=== PATIENT | female | born 1950 | race Caucasian/White ===

== ENCOUNTER 2018-07-22 17:13 | Inpatient (IN) ==
--- NOTE | 2018-07-22 17:52 | ED ---
HPI General Chief complaint: Respiratory Symptoms Stated complaint: tremors Time Seen by Provider: 07/22/18 17:50 Source: patient and family Mode of arrival: wheelchair Limitations: altered mental status History of Present Illness HPI narrative: 66-year-old female patient with history of dementia, multiple medical issues, presents to the ER today brought in by her because apparently she has a home health care nurse and they told him to bring her in. She has poor baseline, demented, has history of anemia, but is appearing more weak than usual. She appears in respiratory distress on initial evaluation. Related Data Allergies Allergy/AdvReac Type Severity Reaction Status Date / Time meperidine Allergy Mild U Unverified 06/22/17 16:31 ADHESIVE Allergy Intermediate CONTACT Uncoded 07/01/15 09:10 POINT ON SKIN REDDENED; SKIN RAW Review of Systems ROS Unobtainable ROS Unobtainable: unobtainable due to mental status PMFSH Medical History Medical History Anemia (Acute) Anxiety (Acute) Breast cancer (Acute) Dementia (Acute) Social History Social History Substance History: No History of Abuse Second Hand Smoke Exposure: No Smoking Status: Former smoker How Often Do You Have a Drink Containing Alcohol: Never Recent Travel in [facility] within the Last 8 Weeks: No Recent Out of Country Travel within the Last 8 Weeks: No Immunization History Tetanus Immunization: <5 Years Hx Influenza Vaccine This Season: Yes Exam Narrative Exam Narrative: GENERAL: Well-developed elderly white female patient currently and moderate respiratory distress. Awake, lethargic. Disoriented. SKIN: Focused skin assessment warm/dry. HEAD: Atraumatic. Normocephalic. EYES: Pupils equal and round. No scleral icterus. No injection or drainage. ENT: No nasal bleeding or discharge. Mucous membranes pink and moist. NECK: Trachea midline. No JVD. CARDIOVASCULAR: Regular rate and rhythm. No murmur appreciated. RESPIRATORY: Moderate accessory muscle use. Bilateral coarse breath sounds and crackles. Breath sounds equal bilaterally. GASTROINTESTINAL: Abdomen soft, non-tender, nondistended. Hepatic and splenic margins not palpable. MUSCULOSKELETAL: No obvious deformities. No clubbing. No cyanosis. No edema. NEUROLOGICAL: Awake and alert. No obvious cranial nerve deficits. Motor grossly within normal limits. Normal speech. PSYCHIATRIC: Lethargic; insight and judgment poor. Course Initial Documented Vital Signs Temperature 98.2 F 07/22/18 17:25 Respiratory Rate 18 07/22/18 17:25 Blood Pressure 75/36 L 07/22/18 17:25 Pulse Oximetry 80 L 07/22/18 17:25 Last Documented Vital Signs Temperature 98.2 F 07/22/18 17:25 Pulse Rate 70 07/22/18 17:43 Respiratory Rate 13 07/22/18 17:43 Blood Pressure 96/53 L 07/22/18 17:43 Pulse Oximetry 100 07/22/18 18:53 Medical Decision Making MDM Narrative Medical decision making narrative: Patient has history of dementia, is answering some questions, but has been apparently is her decision-maker, confirms that he wants her to be a DNR. On initial evaluation, she has bilateral coarse pulmonary crackles, chest x-ray confirms bilateral pulmonary infiltrates, questionable bilateral pneumonia versus CHF. Her blood pressure is fairly low in the ER, IV fluids were given. IV antibiotics are ordered after cultures are drawn, and the patient is put on BiPAP. She will need to be admitted to the ICU for further treatment. At this point, patient will need ICU care, case is discussed with Dr. Wen for admission to the ICU. Aggregate critical care time was 30 minutes. Time to perform other separately billable procedures was not included in the critical care time. My time did not include minutes spent treating any other patients simultaneously or on activities that did not directly contribute to the patient's treatment. The services I provided to this patient were to treat and/or prevent clinically significant deterioration that could result in: Respiratory failure, septic shock, cardiac arrest, I provided critical care services requiring my management, as noted below: Chart data review, documentation time, medication orders and management, vital sign assessments/reviewing monitor data, ordering and reviewing lab tests, ordering and interpreting/reviewing x-rays and diagnostic studies, care of the patient and discussion of the patient with the admitting physicians. Medical Screen Exam Complete: Yes Emergency Medical Condition: Yes Differential Diagnosis Differential Diagnosis: CHF exacerbation versus pneumonia versus COPD versus sepsis Lab Data Lab results reviewed: Yes I reviewed the patient's lab results. Result diagrams: 07/22/18 18:05 07/22/18 18:05 Lab Results 07/22/18 Range/Units 18:05 WBC 13.4 H (4.0-11.0) th/mm3 RBC 2.02 L (4.00-5.30) mil/mm3 Hgb 7.7 L (11.6-15.3) gm/dL Hct 23.3 L (35.0-46.0) % MCV 115.4 H (80.0-100.0) fL MCH 38.0 H (27.0-34.0) pg MCHC 32.9 (32.0-36.0) % RDW 21.1 H (11.6-17.2) % Plt Count 192 (150-450) th/mm3 MPV 9.3 (7.0-11.0) fL Neut % (Auto) 87.3 H (16.0-70.0) % Lymph % (Auto) 8.9 L (9.0-44.0) % [place] % (Auto) 3.6 (0.0-8.0) % Eos % (Auto) 0.1 (0.0-4.0) % Baso % (Auto) 0.1 (0.0-2.0) % Neut # (Auto) 11.7 H (1.8-7.7) th/mm3 Lymph # (Auto) 1.2 (1.0-4.8) th/mm3 [place] # (Auto) 0.5 (0.0-0.9) th/mm3 Eos # (Auto) 0.0 (0.0-0.4) th/mm3 Baso # (Auto) 0.0 (0.0-0.2) th/mm3 WBC Differential . Differential Comment Auto diff final Imaging Data Attestation: I personally reviewed and interpreted this imaging study as follows : Radiologist's impression: Chest X-Ray 07/22/18 17:52 CONCLUSION: Left greater than right parenchymal consolidation as described. Discharge Plan Discharge Disposition Patient Disposition: 30 Still Patient Discharge Condition Condition: Critical Discharge Details Anticipated Discharge Date: 07/22/18 Diagnosis: Pulmonary edema, Hypoxia, Severe sepsis Physicians Team ED Provider: Joey Mari Primary Care Provider: Dashawn Landeros Discharge Interventions Interventions: Vital Signs Last Done: 07/22/18 17:43 Status ED Status: Admitted Patient
--- NOTE | 2018-07-22 18:17 | XR ---
EXAM DATE: 07/22/2018 6:13 PM EDT AGE/SEX: 67 years / Female INDICATIONS: Short of breath. CLINICAL DATA: This is the patient's initial encounter. Patient reports that signs and symptoms have been present for 1 day and indicates a pain score of 0/10. MEDICAL/SURGICAL HISTORY: None. . ORIF right proximal humerus. COMPARISON: . FINDINGS: There is bilateral airspace disease, patchy and diffuse on the right and dense on the left in the mid and lower lung zones. No definite pleural effusion. No pneumothorax. Heart size upper limits of normal. CONCLUSION: Left greater than right parenchymal consolidation as described. Electronically signed by: Dashawn Huynh MD 07/22/2018 6:16 PM EDT
[2018-07-22] MEDS ORDERED: Azithromycin Inj 500 MG in Sodium Chlor 0.9% Inj 250 ML IV.SIG ONE (18:27)
[2018-07-22 19:00] LABS: Baso % (Auto) 0.1 % (0.0-2.0); Eos % (Auto) 0.1 % (0.0-4.0); Hematocrit 23.3 % (35.0-46.0); Hemoglobin 7.7 gm/dL (11.6-15.3); Lymph # (Auto) 1.2 th/mm3 (1.0-4.8); Lymph % (Auto) 8.9 % (9.0-44.0); Mean Corpuscular HGB Conc 32.9 % (32.0-36.0); Mean Corpuscular Volume 115.4 fL (80.0-100.0); Mean Platelet Volume 9.3 fL (7.0-11.0); Mono # (Auto) 0.5 th/mm3 (0.0-0.9); Mono % (Auto) 3.6 % (0.0-8.0); Neut # (Auto) 11.7 th/mm3 (1.8-7.7); Neut % (Auto) 87.3 % (16.0-70.0); Platelet Count 192 th/mm3 (150-450); Red Blood Count 2.02 mil/mm3 (4.00-5.30); Red Cell Distribution Width 21.1 % (11.6-17.2); White Blood Count 13.4 th/mm3 (4.0-11.0)
[2018-07-22] MEDS ORDERED: Temazepam 15 MG Capsule PO PRN (19:02)
[2018-07-22] MEDS ORDERED: Acetaminophen 325 MG Tablet PO PRN (19:02)
[2018-07-22] MEDS ORDERED: Bisacodyl 10 MG Supp RECTAL PRN (19:02)
--- NOTE | 2018-07-22 19:08 | P.HPCC ---
History of Present Illness Primary Care Physician: Dashawn Landeros MD History of Present Illness: 67-year-old female patient with history of advanced dementia, presents because she has had a home health care nurse visit and they told him to bring her in. She has poor baseline, has history of anemia, but is appearing more weak today than usual. In the emergency department she was found to be hypotensive with systolic blood pressure in 70s, and also hypoxemic respiratory failure responded well to BiPAP. No additional history is available due to patient's altered mental status. Review of Systems unobtainable due to mental condition PMFSH - History History Provided By: Family Member - Medical History Medical History: Medical History (Last Reviewed 07/22/18 @ 17:51 by Joey Mari MD) Anemia Anxiety Breast cancer Dementia - Tobacco History Second Hand Smoke Exposure: No Smoking Status: Former smoker - Alcohol History How Often Do You Have a Drink Containing Alcohol: Never - Substance Use History Substance History: No History of Abuse - Travel History Recent Travel in the [place] Within the Last 8 Weeks: No Recent Travel Out of the Country Within the Last 8 Weeks: No - Immunization History Tetanus Immunization: <5 Years Hx Influenza Vaccine This Season: Yes Medications and Allergies Active Medications: Active Medications Acetaminophen (Tylenol) 650 mg PO Q6H PRN PRN Reason: PAIN 1-10 AND/OR FEVER >101F Albuterol (Duoneb Neb (Prn)) 1 ampul NEB Q2HR NEB PRN PRN Reason: WHEEZING Bisacodyl (Dulcolax Supp) 10 mg RECTAL DAILY PRN PRN Reason: SEVERE CONSITIPATION Chlorhexidine Gluconate (Chlorhexidine 2% Cloth) 3 pack TOPICAL DAILY@0400 [facility] Stop: 07/28/18 03:59 Azithromycin 500 mg/ Sodium (Chloride) 250 mls @ 250 mls/hr IV.SIG ONCE ONE Stop: 07/22/18 19:26 Allergies Allergy/AdvReac Type Severity Reaction Status Date / Time meperidine Allergy Mild U Unverified 06/22/17 16:31 ADHESIVE Allergy Intermediate CONTACT Uncoded 07/01/15 09:10 POINT ON SKIN REDDENED; SKIN RAW Results - Labs CBC & Chem 7: 07/22/18 18:05 07/22/18 19:25 Labs: Short CBC 07/22/18 Range/Units 18:05 WBC 13.4 H (4.0-11.0) th/mm3 Hgb 7.7 L (11.6-15.3) gm/dL Hct 23.3 L (35.0-46.0) % Plt Count 192 (150-450) th/mm3 - Imaging Impressions Chest X-Ray 07/22/18 17:52 CONCLUSION: Left greater than right parenchymal consolidation as described. Exam Vital signs: Vital Signs 07/22/18 17:25 07/22/18 17:43 07/22/18 17:52 Temperature 98.2 F Pulse Rate 70 Respiratory Rate 18 13 Blood Pressure 75/36 L 96/53 L Pulse Oximetry 80 L 100 100 07/22/18 18:53 Temperature Pulse Rate Respiratory Rate Blood Pressure Pulse Oximetry 100 Intake & Output 07/22/18 07/22/18 07/23/18 06:59 18:59 06:59 Weight 60.781 kg - Constitutional moderate distress - Routine HEENT Exam Head: Present: normocephalic, atraumatic Eye: Present: PERRL ENT: Present: mucous membranes moist - Routine Neck Exam Present: supple, full ROM. Absent: JVD, carotid bruit - Routine Respiratory Exam Present: accessory muscle use, rhonchi, crackles. Absent: stridor, wheezes - Routine Cardiovascular Exam Present: RRR, S1, S2 - Routine Abdominal Exam Present: soft, normoactive bowel sounds. Absent: tenderness, distended - Routine Extremities Exam Absent: cyanosis, clubbing, edema - Routine Skin Exam Present: intact. Absent: cyanosis, erythema - Routine Neurological Exam Present: moving all extremities Septic Shock Reassessment Septic shock perfusion: reassessment completed Caprini VTE Risk Assessment Caprini VTE Risk Assessment: Moderate/High Risk (score >= 2) Caprini Risk Assessment Model: Point Value = 1 Point Value = 2 Point Value = 3 Point Value = 5 Age 41-60 Minor surgery BMI > 25 kg/m2 Swollen legs Varicose veins or History of unexplained or recurrent spontaneous Oral contraceptives or hormone replacement Sepsis (< 1 month) Serious lung disease, including pneumonia (< 1 month) Abnormal pulmonary function Acute myocardial infarction Congestive heart failure (< 1 month) History of inflammatory bowel disease Medical patient at bed rest Age 61-74 Arthroscopic surgery Major open surgery (> 45 min) Laparoscopic surgery (> 45 min) Malignancy Confined to bed (> 72 hours) Immobilizing plaster cast Central venous access Age >= 75 History of VTE Family history of VTE Factor V Leiden Prothrombin [id number] Lupus anticoagulant Anticardiolipin antibodies Elevated serum homocysteine Heparin-induced thrombocytopenia Other congenital or acquired thrombophilia Stroke (< 1 month) Elective arthroplasty Hip, pelvis, or leg fracture Acute spinal cord injury (< 1 month) Prophylaxis Regimen: Total Risk Factor Score Risk Level Prophylaxis Regimen 0-1 Low Early ambulation 2 Moderate Order ONE of the following: *Sequential Compression Device (SCD) *Heparin 5000 units SQ BID 3-4 Higher Order ONE of the following medications: *Heparin 5000 units SQ TID *Enoxaparin/Lovenox 40 mg SQ daily (WT < 150 kg, CrCl > 30 mL/min) *Enoxaparin/Lovenox 30 mg SQ daily (WT < 150 kg, CrCl > 10-29 mL/min) *Enoxaparin/Lovenox 30 mg SQ BID (WT < 150 kg, CrCl > 30 mL/min) AND/OR *Sequential Compression Device (SCD) 5 or more Highest Order ONE of the following medications: *Heparin 5000 units SQ TID (Preferred with Epidurals) *Enoxaparin/Lovenox 40 mg SQ daily (WT < 150 kg, CrCl > 30 mL/min) *Enoxaparin/Lovenox 30 mg SQ daily (WT < 150 kg, CrCl > 10-29 mL/min) *Enoxaparin/Lovenox 30 mg SQ BID (WT < 150 kg, CrCl > 30 mL/min) AND *Sequential Compression Device (SCD) Assessment and Plan - Assessment and Plan Plan: Respiratory failure Community-acquired pneumonia -Broad-spectrum antibiotics -DuoNeb scheduled and as needed -DNI -BiPAP as needed to keep sats above 92 Acute kidney injury -Dehydration -IV fluid resuscitation -Strict I's and O -Monitor creatinine and electrolytes Anemia -Monitor H&H and transfuse to keep hemoglobin above 7 Coagulopathy -Unclear if patient was on Coumadin -Monitor INR trend -Monitor for bleeding Altered mental status -Underlying dementia -Supportive care -Neuro checks per unit routine DVT GI prophylaxis -Teds SCDs -Subcu heparin -Pepcid 35 minutes of critical care
[2018-07-22] MEDS ORDERED: Sod Chloride 0.9% Inj 1,000 ML IV.CONT SCH (19:15)
[2018-07-22] MEDS: Heparin - SQ 10,000 UNITS/ML Vial SQ SCH ×2 (19:26→21:54)
[2018-07-22 20:06] LABS: Bacteria,Urine Many /hpf; Bilirubin,Urine Negative (Negative); Clarity,Urine Cloudy (Clear); Glucose,Urine (UA) Negative (Negative); Leukocyte Esterase,Urine Negative (Negative); Mucus,Urine Few /lpf (Occasional); Nitrite,Urine Negative (Negative); Specific Gravity,Urine 1.029 (1.002-1.035)
[2018-07-22 20:08] LABS: Color,Urine Yellow (Yellw/Straw)
[2018-07-22 20:08] LABS: Activated Partial Thrombo Time 38.8 sec (24.3-30.1); INR 2.3 Ratio; Prothrombin Time 23.4 sec (9.8-11.6)
[2018-07-22 20:16] LABS: Albumin 1.8 g/dL (3.4-5.0); Anion Gap 13 meq/L (5-15); Aspartate Aminotransferase 76 U/L (15-37); Blood Urea Nitrogen 37 mg/dL (7-18); Calcium 8.2 mg/dL (8.5-10.1); Carbon Dioxide 22.8 meq/L (21.0-32.0); Chloride 106 meq/L (98-107); Glomerular Filtration Rate 18 mL/min (>89); Glucose,Random 77 mg/dL (74-106); Potassium 3.4 meq/L (3.5-5.1); Sodium 142 meq/L (136-145)
[2018-07-22 20:17] LABS: Alanine Aminotransferase 36 U/L (10-53)
[2018-07-22 20:20] LABS: Alkaline Phosphatase 319 U/L (45-117); Total Protein 7.3 g/dL (6.4-8.2); Troponin I 0.04 ng/mL (0.02-0.05)
[2018-07-22] MEDS: Albumin Human 5% Inj 500 ML IV.SIG SCH (21:52)
[2018-07-22] MEDS: Senna/Docusate Sodium 8.6/50 MG Tablet PO SCH (21:53)
[2018-07-22] MEDS: Famotidine PF Inj 20 MG/2 ML Vial IV.PUSH SCH (21:53)
[2018-07-23] MEDS: Piperacil/Tazo 4.5 GM Premix 4.5 GM/100 ML BAG IV.SIG SCH ×2 (01:44→09:47)
[2018-07-23] MEDS ORDERED: Azithromycin Inj 500 MG in Sodium Chlor 0.9% Inj 250 ML IV.SIG SCH (02:00)
[2018-07-23] MEDS: Albumin Human 5% Inj 500 ML IV.SIG SCH ×2 (02:09→09:48)
[2018-07-23] MEDS ORDERED: Chlorhexidine Gluconate 2% 1 Pack (2 Cloths) TOPICAL PRN (04:00)
[2018-07-23] MEDS ORDERED: Chlorhexidine Gluconate 2% 1 Pack (2 Cloths) TOPICAL SCH (04:00)
[2018-07-23 04:59] LABS: Baso # (Auto) 0.3 th/mm3 (0.0-0.2); Eos % (Auto) 0.2 % (0.0-4.0); Hematocrit 22.6 % (35.0-46.0); Lymph # (Auto) 0.6 th/mm3 (1.0-4.8); Lymph % (Auto) 4.1 % (9.0-44.0); Mean Corpuscular HGB Conc 30.9 % (32.0-36.0); Mean Corpuscular Volume 119.9 fL (80.0-100.0); Mean Platelet Volume 9.3 fL (7.0-11.0); Mono # (Auto) 0.6 th/mm3 (0.0-0.9); Mono % (Auto) 4.2 % (0.0-8.0); Neut # (Auto) 13.5 th/mm3 (1.8-7.7); Neut % (Auto) 89.5 % (16.0-70.0); Platelet Count 161 th/mm3 (150-450); Red Blood Count 1.89 mil/mm3 (4.00-5.30); Red Cell Distribution Width 22.3 % (11.6-17.2)
[2018-07-23 05:09] LABS: Activated Partial Thrombo Time 43.7 sec (24.3-30.1); INR 2.5 Ratio; Prothrombin Time 25.7 sec (9.8-11.6)
[2018-07-23 05:24] LABS: Hypersegmented Neutrophils 1+; Lymphocytes 6 % (9-44); Monocytes 5 % (0-8); Ovalocytes 1+; Platelet Estimate Normal (Normal); Platelet Morphology Normal (Normal); Target Cells 1+; Tear Drop Cells 1+
[2018-07-23 05:31] LABS: Albumin 2.7 g/dL (3.4-5.0); Anion Gap 14 meq/L (5-15); Aspartate Aminotransferase 76 U/L (15-37); Blood Urea Nitrogen 39 mg/dL (7-18); Carbon Dioxide 19.8 meq/L (21.0-32.0); Chloride 111 meq/L (98-107); Glomerular Filtration Rate 17 mL/min (>89); Glucose,Random 76 mg/dL (74-106); Magnesium 2.4 mg/dL (1.5-2.5); Potassium 3.4 meq/L (3.5-5.1); Sodium 145 meq/L (136-145)
[2018-07-23 05:40] LABS: Alanine Aminotransferase 36 U/L (10-53); Alkaline Phosphatase 288 U/L (45-117); Phosphorus 3.9 mg/dL (2.5-4.9); Total Protein 7.8 g/dL (6.4-8.2)
[2018-07-23] MEDS: Heparin - SQ 10,000 UNITS/ML Vial SQ SCH (05:49)
--- NOTE | 2018-07-23 08:21 | P.PNCC ---
Subjective Subjective Remarks/Hospital Course: 67-year-old female patient with history of advanced dementia, presents because she has had a home health care nurse visit and they told him to bring her in. She has poor baseline, has history of anemia, but is appearing more weak today than usual. In the emergency department she was found to be hypotensive with systolic blood pressure in 70s, and also hypoxemic respiratory failure responded well to BiPAP. No additional history is available due to patient's altered mental status. SUBJECTIVE: 07/23: Currently resting in bed. Eyes rolled back. Patient states that she wants "to go". Discussed with at bedside. Hospice consult placed. As needed lorazepam and morphine sulfate ordered. Objective Vital Signs / I&O: Vital Signs 07/22/18 17:25 07/22/18 17:43 07/22/18 17:52 Temperature 98.2 F Pulse Rate 70 Respiratory Rate 18 13 Blood Pressure 75/36 L 96/53 L Pulse Oximetry 80 L 100 100 07/22/18 18:53 07/22/18 19:27 07/22/18 19:58 Temperature Pulse Rate 69 Respiratory Rate 18 Blood Pressure 103/56 L Pulse Oximetry 100 100 98 07/22/18 20:55 07/22/18 21:00 07/22/18 21:07 Temperature 98.8 F Pulse Rate 68 79 Respiratory Rate 26 H 37 H Blood Pressure 98/68 L Pulse Oximetry 100 98 91 L 07/22/18 21:13 07/22/18 21:15 07/22/18 21:16 Temperature 98.8 F Pulse Rate 70 69 Respiratory Rate 23 28 H Blood Pressure 93/52 L 93/52 L Pulse Oximetry 95 97 96 07/22/18 21:31 07/22/18 22:00 07/22/18 22:10 Temperature Pulse Rate 67 68 67 Respiratory Rate 27 H 32 H 25 H Blood Pressure 105/52 L 93/50 L Pulse Oximetry 94 L 94 L 97 07/22/18 22:32 07/22/18 23:00 07/22/18 23:28 Temperature Pulse Rate 122 H 68 Respiratory Rate 35 H 36 H Blood Pressure 86/54 L 98/64 L Pulse Oximetry 93 L 98 98 07/22/18 23:31 07/23/18 00:00 07/23/18 00:01 Temperature 97.7 F Pulse Rate 72 74 74 Respiratory Rate 35 H 36 H 51 H Blood Pressure 96/55 L 101/71 Pulse Oximetry 97 97 94 L 07/23/18 00:30 07/23/18 01:00 07/23/18 01:05 Temperature Pulse Rate 73 74 74 Respiratory Rate 44 H 26 H 41 H Blood Pressure 95/54 L 96/52 L Pulse Oximetry 95 94 L 95 07/23/18 01:31 07/23/18 02:00 07/23/18 02:01 Temperature Pulse Rate 75 76 75 Respiratory Rate 30 H 26 H 29 H Blood Pressure 101/58 L 96/53 L Pulse Oximetry 89 L 94 L 94 L 07/23/18 02:30 07/23/18 03:00 07/23/18 03:01 Temperature Pulse Rate 78 90 90 Respiratory Rate 35 H 29 H 38 H Blood Pressure 98/61 L 122/57 L Pulse Oximetry 95 82 L 93 L 07/23/18 03:31 07/23/18 04:00 07/23/18 04:03 Temperature 97.6 F Pulse Rate 86 92 H 84 Respiratory Rate 34 H 0 L Blood Pressure 125/60 103/58 L Pulse Oximetry 91 L 97 97 07/23/18 04:35 07/23/18 05:00 07/23/18 05:02 Temperature Pulse Rate 77 79 80 Respiratory Rate 35 H 48 H 45 H Blood Pressure 84/60 L 85/46 L 94/51 L Pulse Oximetry 98 97 100 07/23/18 06:00 07/23/18 07:51 Temperature 99.0 F Pulse Rate 70 Respiratory Rate 28 H Blood Pressure 89/50 L Pulse Oximetry 96 95 Intake & Output 07/22/18 07/23/18 07/23/18 18:59 06:59 18:59 Intake Total 1700 / 1700 Output Total 150 / 150 Balance 1550 / 1550 Weight 60.781 kg 69.5 kg Intake: IV 1700 / 1700 Alburx 5% Inj 500 ML @ 250 mls/ 1000 / 1000 hr IV.SIG Q6H [facility] Rx#:[id number] Azithromycin Inj 500 MG In NS 500 / 500 Inj 250 ML @ 250 mls/hr IV.SIG Q24H [facility] Rx#:[id number] Maxipime Inj 2,000 MG In NS Inj 100 / 100 100 ML @ 200 mls/hr IV.SIG ONCE ONE Rx#:[id number] Zosyn 4.5 GM Premix 4.5 gm In 100 / 100 100 ml @ 200 mls/hr IV.SIG Q6H [facility] Rx#:[id number] Oral 0 / 0 Output: Urine Amount (Catheter) 150 / 150 Straight 150 / 150 Result Diagrams: 07/23/18 03:54 07/23/18 03:54 Imaging: Chest X-Ray 07/22/18 17:52 CONCLUSION: Left greater than right parenchymal consolidation as described. Objective Remarks: GENERAL: 67-year-old female currently resting in bed in moderate respiratory distress BiPAP SKIN: Warm and dry. HEAD: Atraumatic. Normocephalic. EYES: Pupils equal and round. No scleral icterus. No injection or drainage. ENT: No nasal bleeding or discharge. Mucous membranes pink and moist. NECK: Trachea midline. No JVD. CARDIOVASCULAR: Regular rate and rhythm. RESPIRATORY: + accessory muscle use. Coarse rhonchorous breath sounds appreciated bilaterally. GASTROINTESTINAL: Abdomen soft, non-tender, nondistended. Hypoactive bowel sounds appreciated. MUSCULOSKELETAL: Extremities without significant peripheral edema. No obvious deformities. NEUROLOGICAL: Awake and alert. No obvious cranial nerve deficits. Moving all 4 extremities spontaneously. Assessment and Plan - Assessment and Plan Plan: Neuro/Psych: Dementia disorder NOS We will treat with Lorazepam and morphine sulfate as needed for comfort measures the present time. CV: Severe sepsis likely secondary to healthcare associated pneumonia/already present prior to admission See infectious disease and renal. Holding all antihypertensives Resp: Acute respiratory failure likely secondary to healthcare associated pneumonia already present prior to admission Currently on BiPAP 15/8 at 60% to maintain saturations greater than equal 90% As needed albuterol/ipratropium aerosols every 2 hours as needed We will place on rebreather for comfort at the present time Chest x-ray revealed significant bilateral pneumonia/infiltrates GI: Elevated total bilirubin Hypoalbuminemia Likely due to severe protein calorie malnutrition/ : No indication for Concepcion catheter Endo: Holding sliding scale insulin and light of hospice Renal: Acute kidney injury Creatinine currently 2.8. Previously normal saline at 84 cc an hour. Heme: Macrocytic anemia Leukocytosis History of breast cancer Acute coagulopathic state No indication for transfusion light of current condition ID: Currently on piperacillin/tazobactam and azithromycin Cultures pending MSK: PT evaluate and treat FEN: Hypokalemia Access -Utilize peripheral IV. Central and if indicated Prophylaxis -GI -famotidine - DVT - SCDs Level 3 follow-up. Hospice consult. Discussed with /healthcare proxy who is in agreement. We verified DNR/DNI status.
[2018-07-23] MEDS ORDERED: Morphine Sulfate Inj 2 MG/ML Vial IV.PUSH PRN ×2 (08:36→09:31)
[2018-07-23] MEDS ORDERED: Mupirocin 2% Nasal Oint Topical Syringe EACH NARE SCH (09:00)
[2018-07-23] MEDS: Senna/Docusate Sodium 8.6/50 MG Tablet PO SCH (09:48)
[2018-07-23] MEDS: Famotidine PF Inj 20 MG/2 ML Vial IV.PUSH SCH (09:48)
--- NOTE | 2018-07-23 11:29 | P.DN ---
Pronouncement Note - Date and Time of Date of : 07/23/18 Time of : 11:01 - Summary Additional details: Neuro/Psych: Dementia disorder NOS We will treat with Lorazepam and morphine sulfate as needed for comfort measures the present time. CV: Severe sepsis likely secondary to healthcare associated pneumonia/already present prior to admission See infectious disease and renal. Holding all antihypertensives Resp: Acute respiratory failure likely secondary to healthcare associated pneumonia already present prior to admission Currently on BiPAP 15/8 at 60% to maintain saturations greater than equal 90% As needed albuterol/ipratropium aerosols every 2 hours as needed We will place on rebreather for comfort at the present time Chest x-ray revealed significant bilateral pneumonia/infiltrates GI: Elevated total bilirubin Hypoalbuminemia Likely due to severe protein calorie malnutrition/ : No indication for Concepcion catheter Endo: Holding sliding scale insulin and light of hospice Renal: Acute kidney injury Creatinine currently 2.8. Previously normal saline at 84 cc an hour. Heme: Macrocytic anemia Leukocytosis History of breast cancer Acute coagulopathic state No indication for transfusion light of current condition ID: Currently on piperacillin/tazobactam and azithromycin Cultures pending MSK: PT evaluate and treat FEN: Hypokalemia Access -Utilize peripheral IV. Central and if indicated Prophylaxis -GI -famotidine - DVT - SCDs requested hospice. Received as needed lorazepam and morphine sulfate. Time of 11:01 AM. - Additional Data Confirmation of : no pulse Family: at bedside Additional persons at bedside: social media content manager Attending/PCP notified?: No Attending physician: Gerald Wen MD Was code activated?: No Autopsy requested?: No Advance directives: Yes (DNR/DNI)
--- NOTE | 2018-07-23 11:59 | ECG ---
Date Performed: 07/23/2018 Time Performed: 01:25:44 PTAGE: 67 years EKG: Sinus rhythm QRS changes V3/V4 may be due to LVH but cannot rule out anterior infarct Left ventricular hypertroph y Inferior/lateral ST-T changes may be due to hypertrophy and/or ischemia Abnormal ECG NO PREVIOUS TRACING DOCTOR: Alissa Murphy Interpretating Date/Time 07/23/2018 11:56:44
--- NOTE | 2018-07-23 22:10 | ECG ---
Date Performed: 07/22/2018 Time Performed: 19:53:17 PTAGE: 67 years EKG: Sinus rhythm ST DEVIATION AND MODERATE T-WAVE ABNORMALITY, CONSIDER ANTEROLATERAL ISCHEMIA ST DEVIATION AND MODER ATE T-WAVE ABNORMALITY, CONSIDER INFERIOR ISCHEMIA ABNORMAL ECG PREVIOUS TRACING : 07/02/2015 06.48 DOCTOR: Alissa Murphy Interpretating Date/Time 07/23/2018 22:07:54
--- NOTE | 2018-07-23 22:13 | ECG ---
Date Performed: 07/22/2018 Time Performed: 17:45:35 PTAGE: 67 years EKG: Sinus rhythm NONSPECIFIC ST & T-WAVE ABNORMALITY ABNORMAL ECG INTERPRETATION BASED ON A DEFAULT AGE OF 40 YEARS NO PREVIOUS TRACING DOCTOR: Alissa Murphy Interpretating Date/Time 07/23/2018 22:10:22
== END 2018-07-23 11:01 | disposition expired ==
LOC: NEPC 17:13 → NEDA 19:10 → HIMC 21:10
PROVIDERS: ADMIT Internal Medicine Critical Care Medicine; ATTEND Internal Medicine Critical Care Medicine